=== PATIENT | male | born 1980 | race Caucasian/White ===

== ENCOUNTER 2018-06-23 06:46 | Inpatient (IN) | payer OTHER ==
[~2018-06-23] VITALS: Ht 180.3 cm; Wt 72.6 kg
[~2018-06-23 06:46] MED LIST: ACET500; ALBU3IS INH; ALBU90OI INH; AMIT50 PO; CEPH500 PO; CLIN300 PO; DOXY100 PO; HYDACE5 PO; HYDGUAL120 PO; IBUP800; INCARCERATION; METR500 PO; MONT10T PO; PRED20 PO; PROACE100 PO; Percocet 5-3251 EACH PO; Prednisone20 MG PO; SULTRIDS PO; Ventolin/Prove6.7 GM INH; Vibramycin100 MG PO
[2018-06-23 07:12] LABS: BASOPHILS ABSOLUTE AUTO 0.02 K/mm3 (0.00-0.23); BASOPHILS PERCENT AUTO 0 % (0-2); EOSINOPHILS ABSOLUTE AUTO 0.05 K/mm3 (0.00-0.68); EOSINOPHILS PERCENT AUTO 1 % (0-6); Hematocrit 39.4 % (37.0-53.0); Hemoglobin 13.2 g/dL (13.5-17.5); IMMATURE GRAN ABSOLUTE AUTO 0.03 K/mm3 (0.00-0.10); IMMATURE GRAN PERCENT AUTO 0 % (0-1); LYMPHOCYTES ABSOLUTE AUTO 2.12 K/mm3 (0.84-5.20); LYMPHOCYTES PERCENT AUTO 21 % (21-46); MONOCYTES ABSOLUTE AUTO 0.68 K/mm3 (0.16-1.47); MONOCYTES PERCENT AUTO 7 % (4-13); Mean Corpuscular HGB 31.3 pg (26.0-34.0); Mean Corpuscular HGB Conc 33.5 g/dL (31.5-36.5); Mean Corpuscular Volume 93 fL (80-100); Mean Platelet Volume 10.4 fL (9.1-12.4); NEUTROPHILS ABSOLUTE AUTO 7.01 K/mm3 (1.96-9.15); NEUTROPHILS PERCENT AUTO 71 % (41-73); Platelet Count 224 K/mm3 (150-400); RDW Coefficient Variation 12.6 % (11.7-14.2); RDW Standard Deviation 43.7 fL (35.1-46.3); Red Blood Cell Count 4.22 M/mm3 (4.30-5.90); White Blood Cell Count 9.91 K/mm3 (4.00-11.30)
[2018-06-23 07:27] LABS: International Normalized Ratio 0.97
[2018-06-23 07:31] LABS: Alanine Aminotransfer (ALT/SGP 43 U/L (12-78); Albumin, Blood 3.8 g/dL (3.4-5.0); Albumin/Globulin Ratio 1.1 (0.8-1.8); Alk Phos 87 U/L (50-136); Anion Gap 8 mmol/L (6-16); Aspartate Aminotrans (AST/SGOT 30 U/L (12-37); Bilirubin, Total 0.2 mg/dL (0.1-1.0); Blood Urea Nitrogen 9 mg/dL (8-24); Bun/Creatinine Ratio 9.6 (12.0-20.0); CO2, Blood 22 mmol/L (21-32); CPK Creatine Kinase 684 U/L (39-308); Calcium, Blood 8.4 mg/dL (8.5-10.1); Chloride, Blood 110 mmol/L (98-108); Creatinine, Blood 0.94 mg/dL (0.60-1.20); Globulin, Blood 3.4 g/dL (2.2-4.0); Glomerular Filtration Rate >60 (60-); Glucose, Blood 100 mg/dL (70-99); Potassium, Blood 3.9 mmol/L (3.5-5.5); Sodium, Blood 140 mmol/L (136-145); Total Protein, Blood 7.2 g/dL (6.4-8.2)
[2018-06-23 07:48] LABS: Creatine Kinase MB 11.5 ng/mL (0.0-3.6); Creatine Kinase MB Index 1.7 (0.0-4.0)
--- NOTE | 2018-06-23 13:56 | NUR ---
PT TO DAY SURGERY VIA [facility]
--- NOTE | 2018-06-23 14:00 | NUR ---
PT DROWSY, REPORTS LAST PO ABOUT "7 OR 8" C/O 10 PAIN IN LEFT LEG WHICH IS SPLINTED. PT GIVEN MEDS PER MD ORDERS.
--- NOTE | 2018-06-23 14:43 | NUR ---
PT GIVEN FENTANYL PER REQUEST FROM DR. HERNANDEZ. PT REPORTS PAIN 01/28. PT BIOX DROPS TO MID 88'S AFTER SLOW IV PUSH OF FENTANYL. PT ROUSES TO VERBAL STIMULI. ENCOURAGED TO TAKE DEEP BREATHS. PT THEN FALLS ASLEEP QUICKLY AND BIOX DROPS. PT PLACED ON 2L NC AT THIS TIME. WILL CONTINUE TO MINITOR PT CLOSELY.
--- NOTE | 2018-06-23 14:51 | NUR ---
PT NOT GIVEN VERSED PRIOR TO GOING TO OR. PT HAVING DIFFICULT TIME STAYING AWAY AND KEEP BIOX ABOVE 90% EVEN WITH O2 2L NS.
--- NOTE | 2018-06-23 17:20 | NUR ---
DR FOUNTAIN STATED PT DOES NOT NEED AN XRAY
--- NOTE | 2018-06-23 23:20 | NUR ---
2320: PT PRN MEDICATED FOR LEFT LEG PAIN. PT TRANSFERS SELF TO WHEELCHAIR WITH SBA AND PROPELS SELF OUTSIDE TO SMOKE WITH SIGNIFICANT OTHER; AWAIT RETURN.
--- NOTE | 2018-06-24 07:27 | NUR ---
recvd report from previous shift rn summer, pt sleeping in bed, bed rails up x 2, bed in lowest position, call light within reach
--- NOTE | 2018-06-24 07:38 | NUR ---
DR FOUNTAIN TO ROUND ON PT
[2018-06-24] MEDS ORDERED: HYDR1TAB94 PO (08:00)
[2018-06-24] MEDS ORDERED: ASPI325EC PO (08:01)
--- NOTE | 2018-06-24 09:10 | NUR ---
pt wheeling himself outside via wheelchair
--- NOTE | 2018-06-24 09:40 | NUR ---
pt escorted back to room via wheelchair by significant other
--- NOTE | 2018-06-24 09:43 | NUR ---
OT in working with pt
--- NOTE | 2018-06-24 11:57 | NUR ---
pt outside room via wheelchair with family escort
--- NOTE | 2018-06-24 12:51 | NUR ---
pt provided with discharge instructions and printed materials, medication education, peripheral IV removed wnl. pt and significant other state understanding of instructions. pt in room awaiting ride home.
== END 2018-06-24 13:17 | disposition home or self-care (01) | DRG 494 ==
LOC: ER 06:46 → SURS 09:30
PROVIDERS: Emergency Medicine; ADMIT Orthopaedic Surgery
PROC: BQ1FZZZ Fluoroscopy of Left Lower Leg (ICD-10-PCS; 2018-06-23)
PROC: 0QSH06Z Reposition Left Tibia with Intramedullary Internal Fixation Device, Open Approach (ICD-10-PCS; principal; 2018-06-23 14:30)
DX: S82.202A Unspecified fracture of shaft of left tibia, initial encounter for closed fracture (principal); S82.402A Unspecified fracture of shaft of left fibula, initial encounter for closed fracture; W20.8XXA Other cause of strike by thrown, projected or falling object, initial encounter; J44.9 Chronic obstructive pulmonary disease, unspecified; G25.81 Restless legs syndrome; F17.210 Nicotine dependence, cigarettes, uncomplicated; Z88.5 Allergy status to narcotic agent; Z88.0 Allergy status to penicillin; Z88.2 Allergy status to sulfonamides; Z88.8 Allergy status to other drugs, medicaments and biological substances; Z79.52 Long term (current) use of systemic steroids; Z79.899 Other long term (current) drug therapy
CPT/HCPCS: 29505; 36415; 71045; 73590; 80053; 82550; 82553; 85025; 85610; 85730; 93005; 93010; 94760; 96361; 96374; 96375; 96376; 97110; 97116; 97161; 97530; 99285-25; C1713; J1100; J1170; J1885; J2250; J2405; J2710; J3010; J3370; J7030; J7120

== ENCOUNTER 2022-04-03 18:36 | Emergency (ER) | payer OTHER ==
[~2022-04-03] VITALS: Ht 180.3 cm; Wt 72.6 kg
[~2022-04-03 18:36] MED LIST changes: +ASPI325EC PO; +HYDR1TAB94 PO
[2022-04-03 19:38] LABS: BASOPHILS ABSOLUTE AUTO 0.03 K/mm3 (0.00-0.23); BASOPHILS PERCENT AUTO 0 % (0-2); EOSINOPHILS ABSOLUTE AUTO 0.04 K/mm3 (0.00-0.68); EOSINOPHILS PERCENT AUTO 0 % (0-6); Hematocrit 38.9 % (37.0-53.0); Hemoglobin 13.7 g/dL (13.5-17.5); IMMATURE GRAN ABSOLUTE AUTO 0.03 K/mm3 (0.00-0.10); IMMATURE GRAN PERCENT AUTO 0 % (0-1); LYMPHOCYTES ABSOLUTE AUTO 1.74 K/mm3 (0.84-5.20); LYMPHOCYTES PERCENT AUTO 15 % (21-46); MONOCYTES ABSOLUTE AUTO 0.85 K/mm3 (0.16-1.47); MONOCYTES PERCENT AUTO 7 % (4-13); Mean Corpuscular HGB 31.3 pg (26.0-34.0); Mean Corpuscular HGB Conc 35.2 g/dL (31.5-36.5); Mean Corpuscular Volume 89 fL (80-100); Mean Platelet Volume 10.1 fL (9.1-12.4); NEUTROPHILS ABSOLUTE AUTO 8.74 K/mm3 (1.96-9.15); NEUTROPHILS PERCENT AUTO 77 % (41-73); Platelet Count 260 K/mm3 (150-400); RDW Standard Deviation 42.8 fL (35.1-46.3); Red Blood Cell Count 4.38 M/mm3 (4.30-5.90); White Blood Cell Count 11.43 K/mm3 (4.00-11.30)
[2022-04-03] MEDS ORDERED: CEPH500 PO ×2 (22:16→22:56)
[2022-04-03] MEDS ORDERED: IBUP800 PO (22:16)
== END 2022-04-03 23:07 | disposition left against medical advice (07) ==
LOC: ER 18:36
PROVIDERS: Student in an Organized Health Care Education/Training Program
DX: S51.812A Laceration without foreign body of left forearm, initial encounter (principal); F17.210 Nicotine dependence, cigarettes, uncomplicated; W25.XXXA Contact with sharp glass, initial encounter; Z88.0 Allergy status to penicillin; Z88.1 Allergy status to other antibiotic agents; Z88.5 Allergy status to narcotic agent; Z88.8 Allergy status to other drugs, medicaments and biological substances; Z79.82 Long term (current) use of aspirin; Z79.899 Other long term (current) drug therapy; Z23 Encounter for immunization
CPT/HCPCS: 36415; 73100; 85025; 90714; A9270; J1885; J3010

== ENCOUNTER 2024-03-06 21:46 | Emergency (ER) | payer SELFPAY ==
[~2024-03-06] VITALS: Ht 180.3 cm; Wt 77.1 kg
[~2024-03-06 21:46] MED LIST changes: +IBUP800 PO
[2024-03-06 22:07] VITALS: BP 133/87
== END 2024-03-06 22:40 | disposition home or self-care (01) ==
LOC: ER 21:46
DX: J06.9 Acute upper respiratory infection, unspecified (principal); J45.909 Unspecified asthma, uncomplicated; F17.210 Nicotine dependence, cigarettes, uncomplicated; Z79.82 Long term (current) use of aspirin; Z79.899 Other long term (current) drug therapy; Z88.0 Allergy status to penicillin; Z88.1 Allergy status to other antibiotic agents; Z88.5 Allergy status to narcotic agent
CPT/HCPCS: 99283

== ENCOUNTER 2024-05-25 17:50 | Emergency (ER) | payer SELFPAY ==
[~2024-05-25] VITALS: Ht 180.3 cm; Wt 77.1 kg
[2024-05-25 18:45] LABS: BASOPHILS ABSOLUTE AUTO 0.04 K/mm3 (0.00-0.23); BASOPHILS PERCENT AUTO 0 % (0-2); EOSINOPHILS ABSOLUTE AUTO 0.03 K/mm3 (0.00-0.68); EOSINOPHILS PERCENT AUTO 0 % (0-6); Hematocrit 35.8 % (37.0-53.0); Hemoglobin 12.3 g/dL (13.5-17.5); IMMATURE GRAN ABSOLUTE AUTO 0.07 K/mm3 (0.00-0.10); IMMATURE GRAN PERCENT AUTO 1 % (0-1); LYMPHOCYTES ABSOLUTE AUTO 1.59 K/mm3 (0.84-5.20); LYMPHOCYTES PERCENT AUTO 12 % (21-46); MONOCYTES ABSOLUTE AUTO 0.95 K/mm3 (0.16-1.47); MONOCYTES PERCENT AUTO 7 % (4-13); Mean Corpuscular HGB 30.3 pg (26.0-34.0); Mean Corpuscular HGB Conc 34.4 g/dL (31.5-36.5); Mean Corpuscular Volume 88 fL (80-100); Mean Platelet Volume 9.9 fL (9.1-12.4); NEUTROPHILS ABSOLUTE AUTO 10.89 K/mm3 (1.96-9.15); NEUTROPHILS PERCENT AUTO 80 % (41-73); Platelet Count 301 K/mm3 (150-400); RDW Coefficient Variation 13.2 % (11.7-14.2); RDW Standard Deviation 43.2 fL (35.1-46.3); Red Blood Cell Count 4.06 M/mm3 (4.30-5.90); White Blood Cell Count 13.57 K/mm3 (4.00-11.30)
[2024-05-25 19:18] LABS: Albumin/Globulin Ratio 0.7 (0.8-1.8); Bilirubin, Total 0.5 mg/dL (0.1-1.0); Bun/Creatinine Ratio 9.8 (12.0-20.0); Calcium, Blood 8.9 mg/dL (8.5-10.1); Creatinine, Blood 0.92 mg/dL (0.60-1.20); Globulin, Blood 4.3 g/dL (2.2-4.0); Potassium, Blood 3.9 mmol/L (3.5-5.5); Total Protein, Blood 7.3 g/dL (6.4-8.2)
[2024-05-25] MEDS ORDERED: Acetaminophen 500 MG Tab PO ONE (20:05)
[2024-05-25] MEDS ORDERED: Ketorolac Tromethamine 15mg Vial IV ONE (20:05)
[2024-05-25 21:35] LABS: Influenza A, PCR NEGATIVE (NEGATIVE); Influenza B, PCR NEGATIVE (NEGATIVE); Resp Syncytial Virus, PCR NEGATIVE (NEGATIVE); SARS-Cov-2 (COVID-19) PCR, MMC NEGATIVE (NEGATIVE)
[2024-05-25] MEDS ORDERED: BENZ100A PO (21:55)
[2024-05-25] MEDS ORDERED: DOXY100 PO (21:55)
[2024-05-25] MEDS ORDERED: Doxycycline Hyclate 100 MG TAB PO ONE (21:55)
[2024-05-25 22:00] VITALS: BP 120/78
== END 2024-05-25 22:30 | disposition home or self-care (01) ==
LOC: ER 17:50
PROVIDERS: Emergency Medicine; Physician Assistant
DX: J18.9 Pneumonia, unspecified organism (principal); R10.12 Left upper quadrant pain; J45.909 Unspecified asthma, uncomplicated; F17.210 Nicotine dependence, cigarettes, uncomplicated; Z79.82 Long term (current) use of aspirin; Z79.899 Other long term (current) drug therapy; Z88.0 Allergy status to penicillin; Z88.1 Allergy status to other antibiotic agents; Z88.5 Allergy status to narcotic agent
CPT/HCPCS: 0241U; 71045; 80053; 83690; 85025; 96374; 99284-25; A9270; J1885

== ENCOUNTER 2024-07-28 19:54 | Emergency (ER) | payer SELFPAY ==
[~2024-07-28] VITALS: Ht 180.3 cm; Wt 77.1 kg
[~2024-07-28 19:54] MED LIST changes: +BENZ100A PO
[2024-07-28] MEDS ORDERED: Ipratropium/Albuterol SulF 2.5-0.5MG/3 ML Amp INH ONE (20:25)
[2024-07-28 20:51] LABS: CORONAVIRUS COVID-19 AG Negative (NEGATIVE); INFLUENZA A AG Negative (NEGATIVE); INFLUENZA B AG Negative (NEGATIVE)
[2024-07-28 21:06] VITALS: BP 126/80
[2024-07-28] MEDS ORDERED: RX Prepack Albuterol 1 PREPACK/6.7 GM INH UD ONE (21:35)
[2024-07-28] MEDS ORDERED: BENZ100A PO (21:36)
== END 2024-07-28 21:50 | disposition home or self-care (01) ==
LOC: ER 19:54
PROVIDERS: Student in an Organized Health Care Education/Training Program
DX: J20.9 Acute bronchitis, unspecified (principal); J42 Unspecified chronic bronchitis; J06.9 Acute upper respiratory infection, unspecified; F17.210 Nicotine dependence, cigarettes, uncomplicated; J45.909 Unspecified asthma, uncomplicated; Z79.82 Long term (current) use of aspirin; Z79.899 Other long term (current) drug therapy; Z88.0 Allergy status to penicillin; Z88.1 Allergy status to other antibiotic agents; Z88.5 Allergy status to narcotic agent
CPT/HCPCS: 71046; 87428-QW; 94640; 94664; 99284-25; A9270

== ENCOUNTER 2024-09-22 01:04 | Emergency (ER) | payer SELFPAY ==
[~2024-09-22] VITALS: Ht 180.3 cm; Wt 77.1 kg
[2024-09-22] MEDS ORDERED: Diphth,Pertuss(Acell),Tet Vac 0.5 ML VIAL IM ONE (04:05)
[2024-09-22] MEDS ORDERED: Ibuprofen 600 MG Tab PO ONE (04:05)
[2024-09-22] MEDS ORDERED: Ibuprofen600 MG PO (04:14)
== END 2024-09-22 04:22 | disposition home or self-care (01) ==
LOC: ER 01:04
DX: S40.011A Contusion of right shoulder, initial encounter (principal); Z59.89 Other problems related to housing and economic circumstances; X58.XXXA Exposure to other specified factors, initial encounter; F17.210 Nicotine dependence, cigarettes, uncomplicated; J45.909 Unspecified asthma, uncomplicated; Z88.0 Allergy status to penicillin; Z88.2 Allergy status to sulfonamides; Z88.5 Allergy status to narcotic agent; Z88.1 Allergy status to other antibiotic agents; Z79.51 Long term (current) use of inhaled steroids
CPT/HCPCS: 73030; 73080; 90715; 99283-25; A9270

== ENCOUNTER → 2024-12-29 | Outpatient (CLI) | payer OTHER ==
[~2024-12-29] MED LIST changes: +Ibuprofen600 MG PO
== END ==
LOC: LAB SHORT 17:45 → LAB 17:45
DX: L03.90 Cellulitis, unspecified (principal)
CPT/HCPCS: 87070; 87075; 87077; 87147; 87186; 87205

== ENCOUNTER 2025-05-25 20:28 | Emergency (ER) | payer OTHER ==
[~2025-05-25] VITALS: Ht 180.3 cm; Wt 77.1 kg
[2025-05-25 21:55] LABS: Influenza A, PCR NEGATIVE (NEGATIVE); Influenza B, PCR NEGATIVE (NEGATIVE); Resp Syncytial Virus, PCR NEGATIVE (NEGATIVE); SARS-Cov-2 (COVID-19) PCR, MMC NEGATIVE (NEGATIVE)
[2025-05-25] MEDS ORDERED: Ketorolac Tromethamine 30mg Vial IM ONE (23:25)
[2025-05-25] MEDS ORDERED: Ondansetron 4 MG SoluTab SL ONE (23:30)
[2025-05-26] VITALS: BP 126/91
[2025-05-26] MEDS ORDERED: AZIT250 PO (00:07)
[2025-05-26] MEDS ORDERED: ONDA4ODT MM (00:07)
[2025-05-26] MEDS ORDERED: PRED20 PO (00:07)
[2025-05-26] MEDS ORDERED: ALBU90OI INH (00:07)
[2025-05-27] MEDS ORDERED: DOXY100 PO (11:01)
== END 2025-05-26 00:57 | disposition home or self-care (01) ==
LOC: ER 20:28
PROVIDERS: Emergency Medicine
DX: J06.9 Acute upper respiratory infection, unspecified (principal); F17.210 Nicotine dependence, cigarettes, uncomplicated; Z88.0 Allergy status to penicillin; Z88.2 Allergy status to sulfonamides; J45.909 Unspecified asthma, uncomplicated
CPT/HCPCS: 71045; 87637; 96374; 99283-25; A9270; J1885